=== PATIENT | female | born 1965 | race American Indian/Alaskan Native ===

== ENCOUNTER 2016-12-22 09:40 | Emergency (ER) | payer OTHER ==
[2016-12-22 09:54] VITALS: BP 147/101
== END 2016-12-22 09:52 | disposition left against medical advice (07) ==
LOC: ED 09:40
DX: J11.1 Influenza due to unidentified influenza virus with other respiratory manifestations (principal); Z53.21 Procedure and treatment not carried out due to patient leaving prior to being seen by health care provider

== ENCOUNTER 2017-02-13 08:21 | Outpatient (CLI) | payer OTHER ==
--- NOTE | 2017-02-13 11:09 | Mammography Report ---
Bilateral digital diagnostic mammogram with CAD and targeted left breast ultrasound. History: New palpable lung in the left breast. No prior studies are available. Findings: The breast parenchyma is of intermediate density bilaterally with no evidence of focal mass or architectural distortion. No suspicious microcalcifications are seen. An opaque marker was placed on the skin surface at the site of the palpable lump. No underlying abnormalities are seen. Targeted ultrasound of the air palpable abnormality demonstrates an ovoid shaped circumscribed lesion which is primarily hyperechoic although there is a central heterogeneous region measuring 16 mm in diameter. The measurement of the entire lesion is 1.7 x 0.7 cm. There is no acoustic shadowing or other suspicious features. Impression: Hyperechoic solid mass in the left breast at 12:00 with no mammographic correlate. This most likely represents adipose tissue/lipoma. The sonographic features are benign. BI-RADS code: 3. Recommendation: A 6 month followup ultrasound is recommended to establish stability.
== END 2017-02-13 08:22 | disposition home or self-care (01) ==
LOC: MAMMO 08:21
PROVIDERS: ATTEND Internal Medicine
DX: N63 Unspecified lump in breast (principal); N64.4 Mastodynia
CPT/HCPCS: 76642; G0204; 77066

== ENCOUNTER 2017-08-26 16:27 | Outpatient (CLI) | payer OTHER ==
--- NOTE | 2017-08-26 16:52 | Ultrasound Report ---
LEFT BREAST ULTRASOUND: 08/26/17 16:27:00 CLINICAL: Six month followup for a palpable lump at 12 o'clock 10 cm from the nipple thought to be benign fat necrosis. COMPARISON: 02/13/17 FINDINGS: Ultrasound of the left breast was performed and demonstrated normal fibroglandular structures. The previously described echogenic fat lobule has resolved. IMPRESSION: Negative left breast ultrasound. Resolution of benign fat necrosis. BI-RADS 1 - - Negative RECOMMENDATION: Routine mammographic screening in January 2018.
== END 2017-08-26 16:28 | disposition home or self-care (01) ==
LOC: SPVWC 16:27
PROVIDERS: ATTEND Surgery
DX: N63.20 Unspecified lump in the left breast, unspecified quadrant (principal)

== ENCOUNTER 2017-12-29 10:37 | Day surgery (SDC) | payer OTHER ==
--- NOTE | 2017-12-29 14:20 | Anesthesia Consultation ---
Anesthesia Consult and Med Hx Date of service: 12/29/17 - Airway Anesthetic Teeth Evaluation: Dentures (upper and lower) ROM Head & Neck: Adequate Mental/Hyoid Distance: Adequate Mallampati Class: Class II Intubation Access Assessment: Probably Good - Pre-Operative Health Status ASA Pre-Surgery Classification: ASA2 Proposed Anesthetic Plan: MAC - Cardiovascular System Hx Hypertension: Yes (10 YEARS) Hx Coronary Artery Disease: No (high cholesterol) - Central Nervous System Hx Back Pain: Yes (reumatoid arthritis)
--- NOTE | 2017-12-29 14:20 | Anesthesia Day of Surgery ---
Anesthesia Day of Surgery - Day of Surgery Patient Examined: Yes Patient H&P Reviewed: Yes Patient is NPO: Yes
[2017-12-29] MEDS ORDERED: NACL 0.9% 1000 ML 1,000 ML IV SCH (14:30)
[2017-12-29] MEDS ORDERED: DIPRIVAN 10 MG/ML IV ONE ×3 (15:00→15:26)
--- NOTE | 2017-12-29 15:04 | Anesthesia Consultation ---
Anesthesia Consult and Med Hx Date of service: 12/29/17 - Airway Anesthetic Teeth Evaluation: Good, Chipped (upper front) ROM Head & Neck: Adequate Mental/Hyoid Distance: Adequate Mallampati Class: Class II Intubation Access Assessment: Probably Good - Pre-Operative Health Status ASA Pre-Surgery Classification: ASA3 Proposed Anesthetic Plan: MAC - Pulmonary Hx Smoking: Yes (former smoker) - Cardiovascular System Hx Hypertension: Yes (10 YEARS) Hx Coronary Artery Disease: Yes (CABG x 3 (04/2017)) Hx Heart Attack/AMI: Yes (2015) Hx Angina: No Hx Percutaneous Transluminal Coronary Angioplasty (PTCA): Yes (2016 x 2) - Central Nervous System Hx Back Pain: Yes
[2017-12-29] MEDS ORDERED: WATER FOR IRRIG STERILE ONE (15:29)
--- NOTE | 2017-12-29 16:12 | Operative Report ---
Operative Report Operative Report: Date of procedure: 12/29/2017 Procedure: Colonoscopy with Multiple cold biopsy polypectomies,multiple hot Biopsy polypectomies and polyp ablations, cold biopsy of rectal ulcer. Attending physician: Roderick Torres MD Transformer Builder: Roderick Torres MD Indication: Patient is a 52-year-old female who presents for screening colonoscopy. This colonoscopy serves to evaluate patient so that treatment may be directed based on the findings. Consent: Informed consent was obtained after advising the patient and family regarding nature of this procedure, its indications, potential benefits as well as possible complications including but not limited to bleeding perforation and adverse reaction to medication, infection as well as other cardiopulmonary complications. An informed written and verbal consent was then obtained after due opportunity was provided for questions and answers. Monitoring: Patient was monitored continuously with pulse oximetry and electrocardiographic recordings as well as blood pressure recordings. Vital signs remained stable throughout this procedure with no untoward events. Preoperative assessment: Patient was assessed immediately prior to this procedure for capacity to tolerate monitored anesthesia care and moderate sedation as well as general anesthesia. Patient's ASA classification is 2, Mallampati class is 2, Hyomental distance is 3. Instrument: Gimmien video colonoscope Medications: Propofol given intravenously in divided doses. For details please refer to anesthesia records. Description of procedure: Patient was placed in the left lateral decubitus position after achieving sedation, a digital rectal examination was performed following which the colonoscope was introduced into the anal verge and advanced to the cecum which was identified by the cecal valve, the appendiceal orifice, as well as by the cecal strap and direct transillumination. The colonoscope was subsequently withdrawn with careful inspection of all mucosal surfaces. Patient tolerated this procedure well and was subsequently taken to the recovery room. The following findings were noted. Findings: Patient had multiple diminutive flat polyps in the rectum measuring about 3-5 mm. About 4 of these polyps were removed by hot biopsy polypectomy, 3 of the polyps were removed by cold biopsies and 6 of them were ablated. There were also a few diminutive polyps in the sigmoid colon which measured 3-4 mm. each were removed by cold biopsy polypectomy these were flat. There where a few scattered diverticula in the sigmoid colon and descending colon and the ascending colon. There was a rectal ulcer which was linear measuring approximately 2 cm x 0.5 cm. There was another rectal ulcer which was irregularly shaped. There was surrounding erythema and edema . Biopsies were obtained from the ulcer for histopathologic review. There was a small bleeding in one of the polypectomy sites which was felt to significant. Therefore, a Hemoclip was applied over this site. The rest of the colon to the cecum was normal. On the retroflex view at the anal verge, patient had internal hemorrhoids. Impression: Multiple diminutive rectal and sigmoid colon polyps status post cold biopsy polypectomy, hot biopsy polypectomy and the polyp ablation. Diverticula disease of the colon. Rectal ulcer status post biopsies Internal hemorrhoids. Plan: Follow pathology report. High-fiber diet. Repeat colonoscopy in 5 years if polyp is adenomatous
--- NOTE | 2017-12-29 16:13 | Discharge Summary ---
Short Stay Discharge Plan Activity: advance as tolerated Weight Bearing Status: Weight Bear as Tolerated Diet: regular Additional Instructions: Post Sedation D/C Instructions When you return home you may resume your regular diet unless otherwise directed. -Go directly home from the hospital and rest quietly. You may resume normal activities tomorrow. -Do NOT drive, return to work, operate any machinery or make any important personal or business decisions today. -Do NOT drink any alcohol or take nerve or sleeping drugs. They add to the effects of the medicine still present in your body. Follow up with: JAY COLES MD [Primary Care Provider] - 7 Days
[2017-12-29 16:44] VITALS: BP 123/84
== END 2017-12-29 10:38 | disposition home or self-care (01) ==
LOC: GIO 10:37
PROVIDERS: ATTEND Internal Medicine Gastroenterology
DX: Z12.11 Encounter for screening for malignant neoplasm of colon (principal); D12.5 Benign neoplasm of sigmoid colon; K63.5 Polyp of colon; K62.6 Ulcer of anus and rectum; E78.00 Pure hypercholesterolemia, unspecified; M06.9 Rheumatoid arthritis, unspecified; I10 Essential (primary) hypertension; I25.10 Atherosclerotic heart disease of native coronary artery without angina pectoris; I25.2 Old myocardial infarction; Z95.1 Presence of aortocoronary bypass graft; Z87.891 Personal history of nicotine dependence
CPT/HCPCS: 45380; 45384; 45388; 88305; J2704; J7030